=== PATIENT | female | born 1950 | race Caucasian/White ===

== ENCOUNTER → 2018-05-24 | Outpatient (CLI) | payer OTHER ==
[~2018-05-24] VITALS: Ht 162.6 cm; Wt 102.1 kg
[~2018-05-24] MED LIST: ACYCLOVIR 400400 MG PO; ALLOPURINOL 30300 M1 PO; ASPIR 8181 MG PO; AUGMENTIN 875-1 EACH PO; BLACK ELDERBER1 EACH PO; CELECOXIB100 MG PO; CORAL CALCIUM1 EAC4 PO; HAIR, SKIN & N1 EAC3 PO; HYDROCHLOROTH12.5 M1 PO; HYDROCODON-ACE1 EAC8 PO; LIPITOR 20 MG T20 M1 PO; LISINOPRIL10 MG PO; METFORMIN HCL500 MG PO; NEURONTIN 300300 M1 PO; PROZAC20 MG PO; SYNTHROID150 MCG PO; ZANTAC 150MG T150 MG PO; [UNRECOGNIZED DRUG - OTHER] PO; [UNRECOGNIZED DRUG - OTHER] PO
--- NOTE | ~2018-05-24 | EKG ---
[address] [address] ELECTROCARDIOGRAM REPORT Name: DEONDRE MARTINS Room #: [facility]#: [id number] Admission: Attend Phys: Houston Guevara MD Discharge: Date of : 50 Report #: [id number] THIS REPORT FOR: //name// [facility] Test Date: 2018-05-24 Test Time: 12:51:39 Pat Name: DEONDREJOSÉ MIGUEL MARTINS Department: Room: Gender: F Calender Feeder: jada ashraf : 1950 Requested By: Houston Guevara Order Number: [id number] MD: Omari Hugo Measurements Intervals [place] Rate: 64 P: 60 FL: 161 QRS: 40 QRSD: 93 T: 30 QT: 403 QTc: 416 Interpretive Statements Sinus rhythm Low voltage, precordial leads Compared to ECG 11/04/2017 12:42:35 Low QRS voltage now present Electronically Signed On 05-24-2018 15:07:55 CDT by Omari Hugo [email or web address] <ELECTRONICALLY SIGNED> By: Omari Hugo MD 05/24/18 1507 125 50 Omari Hugo MD /JEAN CARLOS
[2018-05-24 12:56] LABS: HEMATOCRIT 42.2 % (37.0-47.0); HEMOGLOBIN 13.9 gm/dL (12.0-15.0); MCH 30.1 pg (26.0-34.0); MCHC 33.1 g/dL (28.0-37.0); MCV 91.1 fL (80.0-100.0); RBC 4.63 mil/uL (4.20-5.00); RDW 14.2 % (10.5-14.5); WBC 9.2 thou/uL (4.0-11.0)
[2018-05-24 12:57] LABS: URINE BILIRUBIN NEGATIVE (Negative); URINE BLOOD 2+ (Negative); URINE CLARITY CLEAR; URINE COLOR YELLOW; URINE GLUCOSE-RANDOM* NEGATIVE (Negative); URINE KETONES NEGATIVE (Negative); URINE LEUKOCYTES-REFLEX NEGATIVE (Negative); URINE NITRITE-REFLEX NEGATIVE (Negative); URINE PROTEIN (DIPSTICK) NEGATIVE (Negative); URINE UROBILINOGEN 0.2 E.U./dl (0.2-1.0)
[2018-05-24 13:03] LABS: ALBUMIN 4.3 g/dL (3.4-5.0); POTASSIUM 4.2 mmol/L (3.5-5.1)
[2018-05-24 13:13] LABS: PROTIME 10.1 Seconds (9.3-11.4)
[2018-05-24 13:18] LABS: SQUAMOUS 0-3 Few /LPF (0-3)
[2018-05-24 13:19] LABS: BACTERIA-REFLEX 1-9 Few /HPF (None Seen); CASTS None Seen /LPF (None Seen); CRYSTALS None Seen /LPF (None Seen); URINE RBC 0-2 Rare /HPF (0-2); URINE WBC-REFLEX None Seen /HPF (0-5)
[2018-05-25 01:09] LABS: GLYCOHEMOGLOBIN (HGB A1C) 5.7 % (4.8-5.6)
== END ==
LOC: LABMALL 13:10 → PRE 06-02 14:45 → TBA 06-07 05:35 → PRE 06-07 08:34 → EDSTATUS 06-07 13:59 → PRE 06-09 05:35
PROVIDERS: Orthopaedic Surgery
DX: Z01.818 Encounter for other preprocedural examination (principal); M17.11 Unilateral primary osteoarthritis, right knee

== ENCOUNTER 2018-11-17 05:32 | Inpatient (IN) | payer OTHER ==
[2018-11-03 12:30] LABS: URINE BILIRUBIN NEGATIVE (Negative); URINE BLOOD 2+ (Negative); URINE CLARITY CLEAR; URINE COLOR YELLOW; URINE GLUCOSE-RANDOM* NEGATIVE (Negative); URINE KETONES NEGATIVE (Negative); URINE LEUKOCYTES-REFLEX NEGATIVE (Negative); URINE NITRITE-REFLEX NEGATIVE (Negative); URINE PROTEIN (DIPSTICK) NEGATIVE (Negative); URINE SPECIFIC GRAVITY 1.025 (1.005-1.035); URINE UROBILINOGEN 0.2 E.U./dl (0.2-1.0)
[2018-11-03 12:31] LABS: HEMOGLOBIN 13.4 gm/dL (12.0-15.0); MCH 29.4 pg (26.0-34.0); MCHC 32.7 g/dL (28.0-37.0); MCV 89.8 fL (80.0-100.0); RBC 4.57 mil/uL (4.20-5.00); RDW 13.8 % (10.5-14.5); WBC 9.8 thou/uL (4.0-11.0)
[2018-11-03 12:37] LABS: BACTERIA-REFLEX 1-9 Few /HPF (None Seen); CASTS None Seen /LPF (None Seen); CRYSTALS None Seen /LPF (None Seen); SQUAMOUS >10 Many /LPF (0-3); URINE RBC 3-10 Few /HPF (0-2); URINE WBC-REFLEX None Seen /HPF (0-5)
[2018-11-03 12:41] LABS: ALBUMIN 4.1 g/dL (3.4-5.0); CALCIUM 9.3 mg/dL (8.5-10.1); POTASSIUM 4.2 mmol/L (3.5-5.1)
[2018-11-03 12:44] LABS: PROTIME 10.5 Seconds (9.3-11.4)
[2018-11-04 00:08] LABS: GLYCOHEMOGLOBIN (HGB A1C) 5.8 % (4.8-5.6)
[~2018-11-17] VITALS: Ht 162.6 cm; Wt 104.3 kg
--- NOTE | ~2018-11-17 | O ---
[facility] [place] [address] OPERATIVE REPORT Name: DEONDRE MARTINS [place] Room #: 419-P [facility] M.R.#: [id number] Admission: 11/17/18 ������������������ Attend Phys: Houston Guevara MD Discharge: ������������������ Date of : 50 Report #: [id number] THIS REPORT FOR: //name// CC: Ben Guevara DATE OF SERVICE: 11/17/2018 PREOPERATIVE DIAGNOSIS: Right knee osteoarthritis. POSTOPERATIVE DIAGNOSIS: Right knee osteoarthritis. PROCEDURE: Right total knee arthroplasty using Navio robotic assistance. SURGEON: Houston Guevara MD DATA PROCESSING SPECIALIST: Radha Senior PA-C INDICATION FOR ASSISTANCE: Throughout the case, extensive retraction and manipulation of the knee was required. This was afforded to me by my baking assistant. ANESTHESIA: LMA with an adductor canal block. IMPLANTS: [employer]gadillo and Nephew size 6 Legion narrow cobalt chrome femur, a size 4 tibia, a size 9 polyethylene and a size 29 patella. TOURNIQUET TIME: 67 minutes. ESTIMATED BLOOD LOSS: 25 mL. COMPLICATIONS: None. SPECIMENS: None. CONDITION UPON LEAVING THE OPERATING ROOM: Stable. INDICATIONS FOR PROCEDURE: The patient is a 68-year-old female with severe right knee osteoarthritis who failed conservative measures for this and after discussion with her, she elected for right total knee arthroplasty. DESCRIPTION OF PROCEDURE: The risks, benefits, alternatives, complications were discussed in detail with the patient including but not limited to risk of anesthesia, risk of damage to nerves, arteries and blood vessels, risk for infection and bleeding, risk for continued knee pain, and need for reoperation. Informed consent was obtained from the patient. The right knee was appropriately marked in the preoperative holding area. IV Ancef was given for [facility] [address] [place] [address] OPERATIVE REPORT Name: ELIEZERDEONDRE Torrey Room #: 419-P [facility] ..#: [id number] Admission: 11/17/18 ������������������ Attend Phys: Houston Guevara MD Discharge: ������������������ Date of : 50 Report #: [id number] preoperative antibiotics. Adductor canal block was placed by Anesthesia. She was brought to the operating room and placed in supine position on operating room table. LMA anesthesia was induced without complication. Tourniquet was placed on the right thigh. Right lower extremity was prepped and draped in normal sterile fashion. Timeout was performed properly identifying the patient and procedure as well as the instrumentation. All in the operating room were in agreement. The right lower extremity was exsanguinated, tourniquet was inflated, tourniquet time was 67 minutes. Standard midline approach to the knee was made with a 10 blade through the skin. Dissection was taken down sharply to the fascia and deep flaps were developed medially and laterally. A fresh 10 blade was used to make a medial parapatellar arthrotomy and the knee was inspected. There was severe tricompartmental osteoarthritis. ACL and PCL were removed sharply. Reference pins were then placed in the femur and the tibia for the Navio system. The knee was then digitally mapped using the Visualant robotic system. Intraoperative plan was made and we sized a size 6 femur and a size 4 tibia. After acceptance of the intraoperative plan, the distal femoral cut was made with the Navio bur and the 4-in-1 size 6 cutting block was placed on the femur. Anterior, posterior, and chamfer cuts were made. Attention was then turned to the tibia. The remainder of the menisci were removed with Bovie cautery. Tibial resection guide was pinned in place using the Visualant robotic system for placement. Tibial resection was made. After this, flexion and extension gaps were checked and found to have good balance in flexion and extension. The tibia was sized, found to be a size 4. A size 4 tibial trial was placed, pinned and punched. A size 6 femoral trial was placed and the box cut was made. A size 9 polyethylene trial was placed. Knee was taken through range of motion, found to be stable, found to have a millimeter of laxity both medial and laterally throughout range of motion, both digitally as well as manually. A 9 mm was taken off the posterior surface of the patella. A size 29 patellar trial button was placed. Knee was taken through range of motion, found to be stable, found to have good balance in flexion, extension and good patellar tracking. After this, trial components were removed. Bone ends were thoroughly irrigated with normal saline. A final size 4 tibia, a size 6 narrow Legion cobalt chrome femur, and a size 29 patella were cemented in place using standard cementation techniques. While the cement cured, a periarticular injection consisting of morphine, ropivacaine, epinephrine and Toradol was placed around the knee joint capsule. After the cement cured, tourniquet was deflated. Hemostasis was obtained with Bovie cautery. A final size 9 polyethylene was placed. A gram of vancomycin was placed deep in the joint. The fascia was closed with 0 Vicryl, skin was closed with 2-0 Vicryl, 3-0 Monocryl. Dermabond and a BURTON dressing was applied. The patient tolerated this procedure well and went to the recovery room under care of Anesthesia postoperatively. ��������������������������������������������� ���������������������������������������� By: ��������������������������������������������� 1602 11 Houston Guevara MD /nt
[~2018-11-17 05:32] MED LIST changes: +MUCINEX100 MG PO
[2018-11-17 13:54] VITALS: BP 138/62
[2018-11-17 16:00] VITALS: BP 80/51
[2018-11-17 19:14] VITALS: BP 104/48
[2018-11-18 00:12] VITALS: BP 94/46
[2018-11-18 04:42] VITALS: BP 112/52
[2018-11-18 05:50] LABS: HEMATOCRIT 32.2 % (37.0-47.0); HEMOGLOBIN 10.8 gm/dL (12.0-15.0); MCH 30.1 pg (26.0-34.0); MCHC 33.6 g/dL (28.0-37.0); MCV 89.8 fL (80.0-100.0); RBC 3.59 mil/uL (4.20-5.00); RDW 13.8 % (10.5-14.5); WBC 15.9 thou/uL (4.0-11.0)
[2018-11-18 07:30] VITALS: BP 101/47
[2018-11-18 11:44] VITALS: BP 132/59
[2018-11-18] MEDS ORDERED: TRI-BUFFERED A325 M1 PO (12:24)
[2018-11-18 18:36] VITALS: BP 145/67
[2018-11-19 06:05] LABS: HEMATOCRIT 31.1 % (37.0-47.0); HEMOGLOBIN 10.6 gm/dL (12.0-15.0); MCH 30.6 pg (26.0-34.0); MCHC 34.2 g/dL (28.0-37.0); MCV 89.4 fL (80.0-100.0); RBC 3.47 mil/uL (4.20-5.00); RDW 13.6 % (10.5-14.5)
[2018-11-19 07:13] VITALS: BP 136/71
[2018-11-19 14:40] VITALS: BP 136/71
== END 2018-11-19 16:14 | disposition home or self-care (01) | DRG 470 ==
LOC: PRE 05:32 → 4E 05:50 → TBA 05:50 → PRE 10:57 → 4E 17:39 → SICU 11-18 11:11 → ENTRNSPT 11-19 15:30 → EDTRNSPTSTS 11-19 15:32 → SICU 11-19 16:14
PROVIDERS: ADMIT Orthopaedic Surgery
PROC: 8E0Y0CZ Robotic Assisted Procedure of Lower Extremity, Open Approach (ICD-10-PCS; principal; 2018-11-17)
PROC: 0SRC0J9 Replacement of Right Knee Joint with Synthetic Substitute, Cemented, Open Approach (ICD-10-PCS; principal; 2018-11-17)
DX: M17.11 Unilateral primary osteoarthritis, right knee (principal)
CPT/HCPCS: 10783; 15002; 50010; 50101; 50415; 50954; 51130; 51225; 53000; 53078; 53364; 54118; 56527; 56528; 57095; 57103; 57109; 57110; 57113; 57127; 57180; 62110; 62900; 64043; 65060; 70005